=== PATIENT | male | born 1965 | race Two or more races ===

== ENCOUNTER 2023-01-12 10:28 | Emergency (ER) | payer OTHER ==
[~2023-01-12] VITALS: Ht 190.5 cm; Wt 140.0 kg
[2023-01-12 10:44] VITALS: BP 175/117; PULSE 82; RESP 20; O2SAT 97
[2023-01-12 13:28] LABS: Basophils # (auto) 0.1 10 ^3/uL (0-0.2); Basophils % (auto) 0.4 % (0.0-2.0); Eosinophils # (auto) 0.1 10 ^3/uL (0-0.8); Eosinophils % (auto) 0.6 % (0.0-7.0); Hematocrit 39.4 % (41.0-53.0); Hemoglobin 13.1 g/dL (13.5-17.5); Lymphocytes # (auto) 1.2 10 ^3/uL (0.4-5.4); Lymphocytes % (auto) 8.7 % (10.0-50.0); Mean Corpuscular Hemoglobin 27.3 pg (28.0-32.0); Mean Corpuscular Hgb Conc. 33.2 g/dL (32.0-36.0); Mean Corpuscular Volume 82.1 fL (80.0-100.0); Monocytes # (auto) 0.9 10 ^3/uL (0-1.3); Monocytes % (auto) 6.2 % (0.0-12.0); Neutrophils # (auto) 11.8 10 ^3/uL (1.6-8.6); Neutrophils % (auto) 84.1 % (37.0-80.0); Nucleated Red Blood Cells % 0.1 %; Red Cell Distribution Width 14.3 % (11.8-14.3); White Blood Cell 14.1 10^3/uL (4.4-10.8)
[2023-01-12 13:39] LABS: Alanine Aminotransferase 22 U/L (7-40); Albumin 4.3 g/dL (3.2-4.8); Alkaline Phosphatase 81 U/L (46-116); Anion Gap 4.2 (5-15); Aspartate Aminotransferase 14 U/L (13-40); Bilirubin, Total 0.6 mg/dL (0.2-1.0); Blood Alcohol < 3.0 mg/dL (<10); Blood Urea Nitrogen 22 mg/dL (9-23); Calcium 9.3 mg/dL (8.5-10.1); Carbon Dioxide 28.8 mmol/L (20-30); Chloride 107 mmol/L (98-107); Glucose 120 mg/dL (74-106); Potassium 4.3 mmol/L (3.5-5.1); Sodium 140 mmol/L (136-145); Total Protein 6.8 g/dL (5.7-8.2)
[2023-01-12] MEDS ORDERED: TETANUS-DIPTH-ACEL PERTUSSIS 0.5ML SYR Tdap IM ONE (14:30)
[2023-01-12] MEDS ORDERED: LIDOCAINE W/ EPINEPHRINE 1% 20ML VIAL SC ONE (19:00)
[2023-01-12] MEDS ORDERED: HYDROcodone-ACET 5/325MG TAB PO ONE (19:15)
== END 2023-01-12 23:42 | disposition home or self-care (01) ==
LOC: EDBD 10:28 → ER 10:28
DX: S01.81XA Laceration without foreign body of other part of head, initial encounter (principal); M25.562 Pain in left knee; M25.511 Pain in right shoulder; M25.462 Effusion, left knee; I10 Essential (primary) hypertension; V86.59XA Driver of other special all-terrain or other off-road motor vehicle injured in nontraffic accident, initial encounter; Y93.89 Activity, other specified; Y92.89 Other specified places as the place of occurrence of the external cause; Y99.8 Other external cause status
CPT/HCPCS: 12011; 36415; 70450; 71250; 72125; 73030; 73060; 73562; 73590; 80053; 80320; 83605; 85025; 90471; 90715

== ENCOUNTER 2025-05-21 15:05 | Emergency (ER) | payer SELFPAY ==
[~2025-05-21] VITALS: Ht 193 cm; Wt 133.0 kg
--- NOTE | 2025-05-21 16:28 | ED.PDOC ---
Musculoskeletal HPI Comments This is a 59 year old male presenting to the ED with chief complaint of leg swelling. Patient reports that he has been experiencing left calf swelling, pain, and hardening of varicose veins to the same region for the past week. Patient relays that his blood pressure has also been elevated recently due to not being on his blood pressure medication Amlodipine for the past 2 months. Patient denies any injury, SOB, chest pain, fall, dizziness, numbness, or weakness. Chief Complaint: Lower Extremity Time Seen by MD: 16:24 Reviewed Notes: Nurses Notes, Medications, Allergies Allergies: Coded Allergies: NO KNOWN ALLERGIES (Unverified , 01/12/23) Home Meds Active Scripts Apixaban Base (Eliquis Starter Pack) 5 Mg Tab, 5 MG PO DAILY for 30 Days, #30 TAB Prov:ANUP SCANLON MD 05/21/25 Amlodipine Besylate (Amlodipine Besylate) 5 Mg Tab, 1 TAB PO DAILY for 30 Days, #30 TAB 5 Refills Prov:ANUP SCANLON MD 05/21/25 Information Source: Patient Mode of Arrival: Ambulatory Location: Left Extremity Location: Calf, Leg Timing: Weeks Prehospital treatment: None Severity: Moderate Able to Move Extremity: Yes Bear Weight: Fully Pain: Moderate Mechanism: Spontaneous Circumstances: Spontaneous Onset of Symptoms: Spontaneous Symptoms: Swelling, Pain DVT Risk Factors: NONE Past Medical History PAST MEDICAL HISTORY: HTN Surgical History: Denies all surgeries Family History Family History: Reviewed,noncontributory to illness Social History Smoker: Non-Smoker Alcohol: Denies ETOH Use Drugs: Denies Drug Use Lives In: Home Constitutional: denies: chills, diaphoresis, fatigue, fever, malaise, sweats, weakness, others EENTM: denies: blurred vision, double vision, ear bleeding, ear discharge, ear drainage, ear pain, ear ringing, eye pain, eye redness, hearing loss, mouth pain, mouth swelling, nasal discharge, nose bleeding, nose congestion, nose pain, photophobia, tearing, throat pain, throat swelling, voice changes, others Respiratory: denies: cough, hemoptysis, orthopnea, SOB at rest, shortness of breath, SOB with excertion, stridor, wheezing, others Cardiovascular: denies: chest pain, dizzy spells, diaphoresis, Dyspnea on exertion, edema, irregular heart beat, left arm pain, lightheadedness, palpitations, PND, syncope, others Gastrointestinal: denies: abdomen distended, abdominal pain, blood streaked bowels, constipated, diarrhea, dysphagia, difficulty swallowing, hematemesis, melena, nausea, poor appetite, poor fluid intake, rectal bleeding, rectal pain, vomiting, others Genitourinary: denies: burning, dysuria, flank pain, frequency, hematuria, incontinence, penile discharge, penile sore, pain, testicle pain, testicle swelling, urgency, others Neurological: denies: dizziness, fainting, headache, left sided numbness, left sided weakness, numbness, paresthesia, pre-existing deficit, right sided numbness, right sided weakness, seizure, speech problems, tingling, tremors, weakness, others Musculoskeletal: reports: others (left calf pain and swelling); denies: back pain, gout, joint pain, joint swelling, muscle pain, muscle stiffness, neck pain Integumetry: denies: bruises, change in color, change in hair/nails, dryness, laceration, lesions, lumps, rash, wounds, others Allergic/Immunocompromised: denies: Difficulty Healing, Frequent Infections, Hives, Itching, others Hematologic/Lymphatic: denies: anemia, blood clots, easy bleeding, easy bruising, swollen glands, others Endocrine: denies: excessive hunger, excessive sweating, excessive thirst, excessive urination, flushing, intolerance to cold, intolerance to heat, unexplained weight gain, unexplained weight loss, others Psychiatric: denies: anxiety, bipolar disorder, depression, hopeless, panic disorder, schizophrenia, sleepless, suicidal, others All Other Systems: Reviewed and Negative Physical Exam General Appearance: No Apparent Distress, Normal HEENT: Normal ENT Inspection, Pharynx Normal, TMs Normal Neck: Full Range of Motion, Non-Tender, Normal, Normal Inspection Respiratory: Chest Non-Tender, Lungs Clear, No Accessory Muscle Use, No Respiratory Distress, Normal Breath Sounds Cardiovascular: No Edema, No JVD, No Murmur, No Gallop, Normal Peripheral Pulses, Regular Rate/Rhythm Breast Exam: Deferred Gastrointestinal: No Organomegaly, Non Tender, No Pulsatile Mass, Normal Bowel Sounds, Soft Genitalia: Deferred Pelvic: Deferred Rectal: Deferred Extremities: No calf tenderness, Normal capillary refill, Normal inspection, Normal range of motion, Non-tender, No pedal edema, Other (Hardening of varicose veins noted to the popliteal srinivas region inferior to the left knee.) Musculoskeletal : Apperance: Normal Neurologic: Alert, administrative and program specialist II-XII nml as Tested, No Motor Deficits, Normal Affect, Normal Mood, No Sensory Deficits Cerebellar Function: Normal Reflexes: Normal Skin: Dry, Normal Color, Warm Lymphatic: No Adenopathy Was a procedure done? Was a procedure done?: No Differential Diagnosis EXT Differential Diagnosis: Deep Vein Thrombosis X-Ray, Labs, Meds, VS Vital Signs Date Time Temp Pulse Resp B/P (MAP) Pulse Ox O2 Delivery O2 Flow Rate FiO2 05/21/25 20:49 177/108 05/21/25 20:30 55 18 177/108 (131) 98 05/21/25 19:06 189/110 05/21/25 18:58 69 18 189/110 (136) 98 05/21/25 18:03 98.5 60 18 179/101 (127) 97 98.5 05/21/25 15:10 98.0 67 15 192/112 98 98.0 Lab Test 05/21/25 18:50 Range/Units White Blood Count 7.9 4.4-10.8 10^3/uL Red Blood Count 5.33 4.5-5.90 10^6/uL Hemoglobin 14.4 13.5-17.5 g/dL Hematocrit 42.4 41.0-53.0 % Mean Corpuscular Volume 79.6 L 80.0-100.0 fL Mean Corpuscular Hemoglobin 27.0 L 28.0-32.0 pg Mean Corpuscular Hemoglobin Concent 34.0 32.0-36.0 g/dL Red Cell Distribution Width 14.4 H 11.8-14.3 % Platelet Count 256 140-450 10^3/uL Mean Platelet Volume 7.9 6.9-10.8 fL Neutrophils (%) (Auto) 59.5 37.0-80.0 % Lymphocytes (%) (Auto) 24.9 10.0-50.0 % Monocytes (%) (Auto) 9.8 0.0-12.0 % Eosinophils (%) (Auto) 4.7 0.0-7.0 % Basophils (%) (Auto) 1.1 0.0-2.0 % Neutrophils # (Auto) 4.7 1.6-8.6 10 ^3/uL Lymphocytes # (Auto) 2.0 0.4-5.4 10 ^3/uL Monocytes # (Auto) 0.8 0-1.3 10 ^3/uL Eosinophils # (Auto) 0.4 0-0.8 10 ^3/uL Basophils # (Auto) 0.1 0-0.2 10 ^3/uL Nucleated Red Blood Cells 0.0 % Prothrombin Time 10.3 9.3-11.8 sec Prothrombin Time INR 0.97 0.9-1.15 Activated Partial Thromboplast Time 27.9 24.5-34.5 SEC Sodium Level 138 136-145 mmol/L Potassium Level 5.0 3.5-5.1 mmol/L Chloride Level 104 98-107 mmol/L Carbon Dioxide Level 27 20-31 mmol/L Anion Gap 7 5-15 Blood Urea Nitrogen 15 9-23 mg/dL Creatinine 1.02 0.700-1.30 mg/dL Glomerular Filtration Rate Calc 84 >90 mL/min BUN/Creatinine Ratio 14.7 10.0-20.0 Serum Glucose 96 74-106 mg/dL Calcium Level 10.2 8.7-10.4 mg/dL Current Medications Medications (Trade) Dose Ordered Sig/Liz Route Start Time Stop Time Status Last Admin Ketorolac Tromethamine (Toradol Injection) 30 mg ONCE ONCE IM 05/21/25 15:45 05/21/25 15:47 DC 05/21/25 19:06 Acetaminophen (Tylenol Tablet Or Capsule) 1,000 mg ONCE ONCE PO 05/21/25 15:45 05/21/25 15:47 DC 05/21/25 19:06 Amlodipine Besylate (Norvasc Tablet) 5 mg ONCE ONCE PO 05/21/25 15:45 05/21/25 15:47 DC 05/21/25 19:06 Hydralazine HCl (Apresoline Tablet) 25 mg ONCE ONCE PO 05/21/25 20:30 05/21/25 20:31 DC 05/21/25 20:49 Time of 1ST Reevaluation: 17:22 Reevaluation 1ST: Unchanged Patient Education/Counseling: Diagnosis, Treatment Family Education/Counseling: No Family Present Departure 1 Departure Time of Disposition: 20:11 (59-year-old male with past medical history of hypertension (medication noncompliance) presenting for evaluation of left lower extremity pain, swelling over the past week. Patient does have some areas of induration along the left lower extremity which appear to possibly be thrombosed varicose veins. However, given the pain and inflammation along the left lower extremity duplex ultrasound was performed which shows that the patient has findings of superficial vein thrombosis with some possible colorectal formation, findings may be chronic in nature if she already has collateral flow. Patient denying any current chest pain, shortness of breath. Not concerning for pulmonary embolism. Blood pressure noted to be critically high, likely in the setting of longstanding medication noncompliance. Patient was given oral amlodipine as this is what he previously took. CBC with no evidence of critical leukocytosis or significant anemia. Metabolic panel with no evidence of any acute electrolyte abnormalities or acute kidney insufficiency. Coagulation factors are within normal limits. Although the patient has critically high blood pressure he has no evidence of acute end-organ damage. I considered inpatient admission for further management of today's presentation. However, shared decision-making was performed with the patient. He would prefer to be discharged. Patient will be given a prescription for amlodipine and will be started on an Eliquis starter pack. However, as advised that he needs to follow up with the primary care doctor within the month for further management of his right lower extremity DVT and further management of his longstanding uncontrolled hypertension.) Impression: Primary Impression: Pain and swelling of left lower leg Additional Impressions: Deep vein thrombosis of left lower extremity Varicose veins of both lower extremities Uncontrolled hypertension Noncompliance with medication regimen Disposition: HOME / SELF CARE / HOMELESS Condition: Stable Additional Instructions: Your blood pressure was elevated today. You were re-initiated on amlodipine which is what you were supposed to be taking for blood pressure. A duplex ultrasound was performed which shows a you have a right superficial femoral vein thrombosis with some possible collateral flow. You were started on an Eliquis starter pack which he will take for the upcoming month. Either need to follow up with your primary care doctor prior to the month being up as you will need a new prescription for continued Eliquis dosing. e-Prescriptions Apixaban Base (Eliquis Starter Pack) 5 Mg Tab 5 MG PO DAILY for 30 Days, #30 TAB Prov: ANUP SCANLON MD 05/21/25 Amlodipine Besylate (Amlodipine Besylate) 5 Mg Tab 1 TAB PO DAILY for 30 Days, #30 TAB 5 Refills Prov: ANUP SCANLON MD 05/21/25 Discharged With: Self Critical Care Note Critical Care Time?: No Stability Stability form required: No Heart Score Heart Score: Heart Score Response (Comments) Value History N/A 0 EKG N/A 0 Age N/A 0 Risk Factors N/A 0 Troponin N/A 0 Total 0 I personally scribed for ANUP SCANLON MD ([email or web address]) on 05/21/25 at 16:28. Electronically submitted by Amol Bergman ([email or web address]). ANUP SCANLON MD May 21, 2025 16:28
--- NOTE | 2025-05-21 17:38 | DVH ---
US LT Lower DVT HISTORY: left leg swelling; +varicose veins, eval for DVT COMPARISON: XY L TIB FIB XRAY on DOS: 01/12/23 TECHNIQUE: Realtime grayscale, color flow, and Doppler ultrasound images of the deep venous structures with spectral waveform analysis were obtained. Doppler spectral waveform analysis of the left lower extremity veins was performed. FINDINGS: Left Lower Extremity: Left common femoral vein: Normal compressibility and flow. Left femoral vein: Thrombus within the mid segment of the left femoral vein, with possible collateral formation. Left popliteal vein: Normal compressibility and flow. Proximal calf veins demonstrate flow. IMPRESSION: Thrombus within the left lower extremity mid superficial femoral vein, with possible collateral vasculature. Findings notified by lawn mower to Dr. Díaz.
[2025-05-21 18:03] VITALS: TEMP 98.5
[2025-05-21] MEDS: ACETAMINOPHEN 500 MG TAB or CAP PO ONE (19:06)
[2025-05-21] MEDS: KETOROLAC TROMETH 60MG/2ML VIAL IM ONE (19:06)
[2025-05-21 19:12] LABS: Hematocrit 42.4 % (41.0-53.0); Hemoglobin 14.4 g/dL (13.5-17.5); Mean Corpuscular Hemoglobin 27.0 pg (28.0-32.0); Mean Corpuscular Volume 79.6 fL (80.0-100.0); Nucleated Red Blood Cells % 0.0 %
[2025-05-21 19:20] LABS: Chloride 104 mmol/L (98-107); Potassium 5.0 mmol/L (3.5-5.1); Sodium 138 mmol/L (136-145)
[2025-05-21 19:21] LABS: Anion Gap 7 (5-15); Calcium 10.2 mg/dL (8.7-10.4); Carbon Dioxide 27 mmol/L (20-31)
[2025-05-21 19:26] LABS: BUN/Creatinine Ratio 14.7 (10.0-20.0); Blood Urea Nitrogen 15 mg/dL (9-23); Glucose 96 mg/dL (74-106)
[2025-05-21 19:27] LABS: INR 0.97 (0.9-1.15); Partial Thromboplastin Time 27.9 SEC (24.5-34.5); Prothrombin Time 10.3 sec (9.3-11.8)
[2025-05-21] MEDS ORDERED: AMLO1TAB22 PO (20:16)
[2025-05-21] MEDS ORDERED: APIX5TAB4 PO (20:16)
[2025-05-21 20:30] VITALS: BP 177/108; PULSE 55; RESP 18; O2SAT 98
== END 2025-05-21 21:35 | disposition home or self-care (01) ==
LOC: ER 15:05
DX: I82.412 Acute embolism and thrombosis of left femoral vein (principal); I10 Essential (primary) hypertension; Z91.148 Patient's other noncompliance with medication regimen for other reason
CPT/HCPCS: 36415; 80048; 85025; 85610; 85730; 93971; 96372; 99285; J1885